=== PATIENT | male | born 1960 | race Caucasian/White ===

== ENCOUNTER → 2017-09-09 | Outpatient (CLI) | payer MEDICAID ==
--- NOTE | 2017-09-10 10:50 | US ---
EXAMINATION TYPE: US thyroid st tissue head/neck DATE OF EXAM: 09/09/2017 COMPARISON: 2016 CLINICAL HISTORY: E04.1 THYROID NODULE. GLAND SIZE: Right Lobe: 3.9 x 2.1 x 1.9 cm Overall Parenchyma: heterogenous Left Lobe: 2.3 x 1.1 x 1.3 cm Overall Parenchyma: heterogeneous Isthmus Thickness: 0.5 cm NODULES RIGHT: # of nodules measured on right: 1 1. 0.5 X 0.4 x 0.3 cm echogenic nodule at the mid /lateral pole with margins; . This nodule is rou nd and shows no intranodular vascularity. Prior size: 0.5 x 0.4 x 0.3 cm LEFT: # of nodules measured on left: 0 ISTHMUS: # of nodules measured in the isthmus: 0 Bilateral neck scanned, no evidence of lymphadenopathy. IMPRESSION: The gland is heterogeneous and somewhat atrophic, correlate for thyroiditis.
== END ==
LOC: RADUSWWP 16:12
PROVIDERS: ATTEND Nurse Practitioner Adult Health
DX: E04.1 Nontoxic single thyroid nodule (principal)
CPT/HCPCS: 76536

== ENCOUNTER → 2023-08-16 | Outpatient (CLI) | payer MEDICAID ==
--- NOTE | 2023-08-17 13:43 | US ---
EXAMINATION TYPE: US thyroid st tissue head/neck DATE OF EXAM: 08/16/2023 COMPARISON: 09/09/2017 CLINICAL INDICATION: Male, 63 years old with history of E04.1 SINGLE THYROID NODULE; follow up thyroi d nodule GLAND SIZE: Right Lobe: 3.8 x 1.6 x 1.4 cm Overall Parenchyma: heterogenous Left Lobe: 2.4 x 0.9 x 1.3 cm Overall Parenchyma: heterogenous Isthmus Thickness: 0.5 cm NODULES RIGHT: # of nodules measured on right: 1 1. 0.4 X 0.4 x 0.4 cm, mid , solid or almost completely solid, hyperechoic TR 3 nodule, which is wi jonathan than tall, with smooth margins, without echogenic foci. Prior size: 0.5 x 0.4 x 0.3 cm LEFT: # of nodules measured on left: 0 ISTHMUS: # of nodules measured in the isthmus: 0 Bilateral neck scanned, no evidence of lymphadenopathy. IMPRESSION: 1. Small heterogeneous thyroid gland may reflect chronic hypothyroidism. 2. A solitary 4 mm TR3 nodule on the right versus 5 mm back in 2018. 2017 ACR TI-RADS LEVEL: TR-RADS 3 - Mildly Suspicious: Follow if > 1.5 cm, FNA if > 2.5 cm *Highest TI-RADS level nodule reported
== END | disposition home or self-care (01) ==
LOC: RADUSWWP 16:28
PROVIDERS: ATTEND Family Medicine
DX: E04.1 Nontoxic single thyroid nodule (principal)
CPT/HCPCS: 76536